=== PATIENT | male | born 1975 | race Caucasian/White ===

== ENCOUNTER 2019-09-04 12:41 | Outpatient (CLI) | payer OTHER ==
--- NOTE | 2019-09-04 15:25 | MRI Report ---
Reason: CERVICALGIA Procedure Date: 09/04/2019 Accession Number: [id number] / [id number] Procedure: MRI - Cervical Spine W/O CPT Code: Final Report FULL RESULT: EXAM: MRI CERVICAL SPINE WITHOUT CONTRAST EXAM DATE: 09/04/2019 01:29 PM. CLINICAL HISTORY: Cervicalgia. COMPARISONS: None. TECHNIQUE: Multiplanar, multisequence T1-weighted and fluid-sensitive sequences of the cervical spine without contrast. Other: None. FINDINGS: Neurologic Structures: The visualized posterior fossa structures are unremarkable. No signal abnormality in the visualized spinal cord. The spinal canal is capacious. Alignment: No scoliosis or spondylolisthesis. Bone Marrow: No gross fractures or bone lesions. No marrow edema. Interspace Levels/Facets: C1-C2: Unremarkable. C2-C3: Unremarkable. C3-C4: Unremarkable. C4-C5: Unremarkable. Minimal degenerative uncovertebral change is seen bilaterally. C5-C6: Mild diskogenic endplate irregularity and signal abnormality is noted. Mild broad-based dorsal disk bulge. Mild degenerative uncovertebral change. Mild anterior osteophyte formation. No stenosis. C6-C7: Minimal dorsal disk bulge is seen. Mild right dorsolateral disk protrusion and right-sided degenerative uncovertebral change. No stenosis. C7-T1: Unremarkable. Musculature: Normal. No edema or fatty atrophy. Other: The paravertebral and prevertebral soft tissues are normal. IMPRESSION: 1. Normal appearance to the cervical spinal cord. The spinal canal is capacious. 2. Mild spondylosis with degenerative disk and uncovertebral change at C5-C6 and C6-C7. No significant foraminal stenosis. [facility]
== END 2019-09-04 12:42 | disposition home or self-care (01) ==
LOC: DI 12:41
PROVIDERS: ATTEND Family Medicine
DX: M47.812 Spondylosis without myelopathy or radiculopathy, cervical region (principal); M50.322 Other cervical disc degeneration at C5-C6 level
CPT/HCPCS: 72141